=== PATIENT | female | born 1995 | race African-American/Black ===

== ENCOUNTER 2017-01-16 14:14 | Emergency (ER) | payer OTHER ==
[2017-01-16 13:48] LABS: URINE SOURCE CLEAN CATCH
[2017-01-16 13:55] LABS: URINE APPEARANCE CLOUDY; URINE BILIRUBIN NEG (NEG); URINE BLOOD NEG (NEG); URINE COLOR YELLOW; URINE GLUCOSE NEG (NEG); URINE KETONE NEG (NEG); URINE LEUKOCYTE ESTERASE 3+ (NEG); URINE NITRATE NEG (NEG); URINE PH 6.5 (5-8); URINE PROTEIN TRACE (NEG); URINE SPECIFIC GRAVITY 1.028 (1.003-1.035)
[2017-01-16 13:58] LABS: CULTURE INDICATED? YES; URINE BACTERIA AUWI NEG (NEGATIVE); URINE SQUAMOUS EPITHELIAL CELL FEW /[HPF]; UWBCS1 AUWI 100-200 (0-5)
[2017-01-16 14:11] LABS: URINE MUCUS PRESENT
[2017-01-19 15:37] LABS: CHLAMYDIA TRACH Not Detected (Not Detected); N GONOR Not Detected (Not Detected)
== END 2017-01-16 15:00 | disposition home or self-care (01) ==
LOC: CFTX 14:14
PROVIDERS: Nurse Practitioner
DX: N30.00 Acute cystitis without hematuria (principal); I10 Essential (primary) hypertension; Z87.891 Personal history of nicotine dependence
CPT/HCPCS: 81003; 84703; 87086; 87491; 87591; 87808; 87905; 99284

== ENCOUNTER 2017-02-12 07:36 | Emergency (ER) | payer OTHER ==
[2017-02-12 07:31] LABS: URINE SOURCE CLEAN CATCH
[2017-02-12 07:52] LABS: URINE BILIRUBIN NEG (NEG); URINE BLOOD TRACE (NEG); URINE COLOR DK YELLOW; URINE GLUCOSE NEG (NEG); URINE KETONE TRACE (NEG); URINE LEUKOCYTE ESTERASE 2+ (NEG); URINE NITRATE NEG (NEG); URINE PROTEIN 1+ (NEG); URINE SPECIFIC GRAVITY 1.027 (1.003-1.035)
[2017-02-12 07:55] LABS: URINE BACTERIA AUWI 2+ (NEGATIVE); URINE SQUAMOUS EPITHELIAL CELL FEW /[HPF]; UWBCS1 AUWI 200-300 (0-5)
[2017-02-12 07:58] LABS: URINE APPEARANCE TURBID
== END 2017-02-12 08:35 | disposition home or self-care (01) ==
LOC: CED 07:36
PROVIDERS: Emergency Medicine
DX: N30.00 Acute cystitis without hematuria (principal); R19.7 Diarrhea, unspecified
CPT/HCPCS: 81003; 84703; 99284

== ENCOUNTER 2017-04-08 20:44 | Emergency (ER) | payer OTHER ==
[2017-04-08 21:35] LABS: BASOPHIL% 0.4 % (0-2.5); DIFF IND NO; EOSINOPHIL% 0.2 % (0.0-7.0); HEMATOCRIT 41.1 % (35.0-45.0); HEMOGLOBIN 13.5 gm/dL (12.0-16.0); MEAN CELL VOLUME 88.8 FL (83-96); MEAN CORPUSCULAR HEMOGLOBIN 29.1 PG (28-34); MEAN CORPUSCULAR HGB CONC 32.8 g/dL (30-36); MEAN PLATELET VOLUME 8.3 FL (6.5-11.5); MONOCYTE# 0.7 X10e3 (0-1.0); MONOCYTE% 6.1 % (3.0-12.0); NEUTROPHIL# 9.5 X10e3 (1.5-7.1); NEUTROPHIL% 84.3 % (40-75); PLATELET COUNT 273 X10e3 (140-420); RED BLOOD COUNT 4.62 X10e (3.90-5.30); RED CELL DISTRIBUTION WIDTH 13.8 % (11.0-15.5); WHITE BLOOD COUNT 11.3 X10e3 (4.0-10.5)
[2017-04-08 22:00] LABS: CALCIUM SERUM 8.7 mg/dL (8.4-10.2); CREATININE SERUM 0.9 mg/dL (0.6-1.4); GLOM FILT RATE Estimated 105.3 mL/min (>60); POTASSIUM 3.6 mmol/L (3.5-5.1)
[2017-04-09 00:39] LABS: INFLUENZA A NEG (NEG); INFLUENZA B NEG (NEG)
[2017-04-09 01:03] LABS: URINE SOURCE CLEAN CATCH
[2017-04-09 01:10] LABS: URINE APPEARANCE CLEAR; URINE BILIRUBIN NEG (NEG); URINE BLOOD NEG (NEG); URINE COLOR YELLOW; URINE GLUCOSE NEG (NEG); URINE KETONE NEG (NEG); URINE LEUKOCYTE ESTERASE 3+ (NEG); URINE NITRATE NEG (NEG); URINE PH 7.5 (5-8); URINE PROTEIN NEG (NEG); URINE SPECIFIC GRAVITY 1.019 (1.003-1.035); URINE UROBILINOGEN 0.2 MG/DL (NEG)
[2017-04-09 01:12] LABS: CULTURE INDICATED? YES; URINE BACTERIA AUWI 1+ (NEGATIVE); URINE SQUAMOUS EPITHELIAL CELL NONE SEEN /[HPF]; UWBCS1 AUWI 100-200 (0-5)
== END 2017-04-09 02:12 | disposition home or self-care (01) ==
LOC: CED 20:44
PROVIDERS: Emergency Medicine
DX: N30.00 Acute cystitis without hematuria (principal); I10 Essential (primary) hypertension
CPT/HCPCS: 36415; 80048; 81003; 84703; 85025; 87086; 87651; 87804; 96361; 96374; 99283; J1885

== ENCOUNTER 2017-07-01 17:39 | Emergency (ER) | payer OTHER ==
[~2017-07-01] VITALS: Ht 144.8 cm; Wt 83.9 kg
--- NOTE | ~2017-07-01 | EKG ---
PATIENT: CAROLYNN SOMMER UNIT #: [id number] Ventricular Rate: 78 BPM Atrial Rate: 78 BPM P-R Interval: 160 ms QRS Duration: 80 ms Q-T Interval: 376 ms QTC Calculation(Bezet): 428 ms P [place]: 35 degrees Calculated R [place]: 19 degrees Calculated T [place]: 43 degrees Diagnosis Line: Normal sinus rhythm Diagnosis Line: Normal ECG Diagnosis Line: When compared with ECG of 25-DEC-2015 09:41, Diagnosis Line: Vent. rate has decreased BY 38 BPM Diagnosis Line: Non-specific change in ST segment in Anterior Diagnosis Line: leads Diagnosis Line: Nonspecific T wave abnormality, worse in Lateral Diagnosis Line: leads Diagnosis Line: Confirmed by COSTA KASPER MD ([id number]) on 07/02/2017 Diagnosis Line: 7:37:00 PM INTERPRETING MD: RANJITH CAMPBELL
== END 2017-07-01 19:40 | disposition home or self-care (01) ==
LOC: CED 17:39
DX: R07.89 Other chest pain (principal)
CPT/HCPCS: 93005; 96372; 99284; J1885